=== PATIENT | male | born 1945 | race Caucasian/White ===

== ENCOUNTER 2020-05-09 10:29 | Emergency (ER) | payer MEDICARE, OTHER ==
[~2020-05-09] VITALS: Ht 162.6 cm; Wt 63.5 kg
[2020-05-09 10:36] VITALS: BP 133/84
--- NOTE | 2020-05-09 10:41 | NUR ---
Pt ambulated to bed 03 with steady gait
--- NOTE | 2020-05-09 10:46 | NUR ---
74 YO M C/O LEFT KNEE PAIN X 2 MONTHS. Denies any trauma/injury. Pt had surgery on affected knee approx 2 years ago. No medications taken. in er, vss. pt able to ambulate steadily. pt sitting on bed comfortably. ermd made aware. medhx: inguinal hernia nka
[2020-05-09 11:20] VITALS: BP 133/84
--- NOTE | 2020-05-09 11:20 | NUR ---
Note dorothyphan in EDM - 05/09/20 [place] 1144 [place] [facility] [place] with [place]s [place]. Written and verbal after care instructions given and explained. Patient alert, oriented and verbalized understanding of instructions. Ambulatory with steady gait. All questions addressed prior to discharge. ID band removed. Patient advised to follow up with PMD. Rx of LASIX given. Patient educated on indication of medication including possible reaction and side effects. Opportunity to ask questions provided and answered.
== END 2020-05-09 11:20 | disposition home or self-care (01) ==
LOC: MED 10:29
DX: M17.12 Unilateral primary osteoarthritis, left knee (principal)
CPT/HCPCS: 73562; 99283

== ENCOUNTER 2020-11-01 12:48 | Emergency (ER) | payer MEDICARE, OTHER ==
[~2020-11-01] VITALS: Ht 165.1 cm; Wt 63.5 kg
[2020-11-01 12:54] VITALS: BP 151/84
--- NOTE | 2020-11-01 13:10 | NUR ---
EDI MADE AWARE THAT PT REQUESTED PO MED AND DOES NOT WANT IM, DR MCDONALD SAID HE WILL NOT DO PO MED. PT DECLINED MED
[2020-11-01] MEDS: KETOROLAC 60 MG/2 ML VIAL IM ONE (13:14)
--- NOTE | 2020-11-01 13:22 | NUR ---
75 YEAR OLD MALE COMPLAINS OF LEFT KNEE PAIN X 1 YEAR. PT ABLE TO AMBULATE WITH EVEN AND STEADY GAIT. PT AOX4, BREATHING EVEN AND UNLABORED, SKIN WARM AND DRY. BED IN LOWEST POSITION, LOCKED, BED RAIL UPX1. PMH - DENIES ALLERGIES - NKA
--- NOTE | 2020-11-01 13:55 | NUR ---
DR MCDONALD AT BEDSIDE
[2020-11-01 14:20] VITALS: BP 151/84
--- NOTE | 2020-11-01 14:21 | NUR ---
Patient discharged with v/s stable. Written and verbal after care instructions given and explained. Patient verbalized understanding. Ambulatory with steady gait. All questions addressed prior to discharge. Advised to follow up with PMD.
== END 2020-11-01 14:21 | disposition home or self-care (01) ==
LOC: MED 12:48
DX: M25.562 Pain in left knee (principal)
CPT/HCPCS: 99281; J1885

== ENCOUNTER 2024-02-03 16:16 | Emergency (ER) | payer OTHER ==
[~2024-02-03] VITALS: Ht 160 cm; Wt 68.0 kg
[2024-02-03 16:33] VITALS: BP 146/83; PULSE 100; RESP 18; TEMP 97.3; O2SAT 95
== END 2024-02-03 19:02 | disposition left against medical advice (07) ==
LOC: MED 16:16
DX: M79.602 Pain in left arm (principal); R22.32 Localized swelling, mass and lump, left upper limb; Z53.21 Procedure and treatment not carried out due to patient leaving prior to being seen by health care provider